=== PATIENT | female | born 1960 | race Caucasian/White ===

== ENCOUNTER → 2019-11-08 | Outpatient (CLI) | payer OTHER ==
--- NOTE | 2019-11-08 13:45 | RAD ---
MR#: [id number] Date of Study: 11/08/2019 Ordering Physician: VIANNEY ANN, Referring Physician: LESLEY JONES Tech: RT Sonia (R) (N) APPROVED REPORT Test Type: Exercise Stress Nurse/Tech: Macey ACE Test Indications: HTN, Extremilty numbness Cardiac History: HTN, See EMR Medications: See EMR Medical History: See EMR Resting ECG: SR Resting Heart Rate: 61 bpm Resting Blood Pressure: 129/56mmHg Pretest Chest Pain: No chest pain Nurse/Tech Notes Lungs CTA, Heart tones regular Consent: The procedure was explained to the patient in lay terms. Informed consent was witnessed. Rommel eout was entered into [employer]. History and Stress Test performed by CARLO Lyman, CED (R) (N) Stress Symptoms No chest pain or symptoms. POST EXERCISE Reason for Termination: Reached target heart rate Target HR: Yes Max HR: 140 bpm 102% of Maximum Predicted HR: 137 bpm Exercise duration: 5:34 min:sec, 2 Stage Exercise capacity: 7METs Max Blood Pressure: 162/51mmHg Blood Pressure response to exercise: Normal blood pressure response during stress. Heart Rate response to exercise: WNL Chest Pain: No. Arrhythmia: No. ST Change: No. INTERPRETATION Stress EKG Conclusion: No evidence of stress-induced EKG changes Imaging Protocol IMAGE PROTOCOL: Rest Tc-99m/stress Tc-99m 1 day Rest: Stress: Viability: Radiopharm.Tc99m [id number] Sestamibi Dose10.5mCi 33mCi Duration 15min. 10min. Img Date 11/08/2019 11/08/2019 Inj-Img [id number]. 60min. Rest Admin Site:IV - Left AntecubitalAdministrator: RT Sonia (R)(N) Stress Admin Site: IV - Left AntecubitalAdministrator: CARLO Lyman, ARRT (R)(N) STRESS DATA End Diast. Vol.74.0mlAv. Heart Rate76.0bpm End Syst. Vol.8.0mlCO Index BSA0.0L/min Myocardial Rhho835.0gEject. Kykarfmp50.0% Stress Rates Pk. Fill Rate2.48EDV/secLVtime Pk. Fill 115.87msec Pk. Empty Rate4.66ESV/secLVtime Pk. Zkive728.44msec 1/3 Pk. Fill1.70EDV/sec Stress Scores Regional WT0.00Summed WT0.00 Regional WM0.00Summed WM0.00 The rest and stress images show normal perfusion, normal contraction and thickening. LV Perf. Quant 17 Seg. SSS3.00 17 Seg. SRS10.00 17 Seg. SDS0.00 Stress Defect Extent (% LAD)5.00Rest Defect Extent (% LAD)8.10Rev. Defect Extent (% LAD)0.00 Stress Defect Extent (% LCX) 12.50Rest Defect Extent (% LCX)31.30Rev. Defect Extent (% LCX)0.00 Stress Defect Extent (% RCA)0.00Rest Defect Extent (% RCA)1.10Rev. Defect Extent (% RCA)0.00 Stress Defect Extent (% GREY)5.90Rest Defect Extent (% GREY)13.90Rev. Defect Extent (% GREY)0.00 Other Information Quality:Fair Risk Assessment: Low Risk Conclusion 1. No evidence of EKG changes with stress testing. 2. Normal perfusion at stress/rest. 3. Low risk study. 4. EF > 60%. Signed by : Guido Damian, Electronically Approved : 11/08/2019 13:44:48
== END | disposition home or self-care (01) ==
LOC: NM 09:36
PROVIDERS: ATTEND Internal Medicine Cardiovascular Disease
DX: R07.9 Chest pain, unspecified (principal)
CPT/HCPCS: 78452; 93017; A9500